=== PATIENT | female | born 1945 | race Caucasian/White ===

== ENCOUNTER 2016-09-21 10:47 | Emergency (ER) | payer MEDICARE, OTHER ==
[~2016-09-21] VITALS: Ht 154.9 cm; Wt 90.9 kg
[~2016-09-21 10:47] MED LIST: ACET-66 PO; AMAN100C12 PO; CALC-895 PO; CARB-102 PO; CITA20TA9 PO; GABA-533 PO; HYDR28.484 TP; OMEP20CA4 PO; PARO20TA24 PO; PRAM1TAB3 PO; TIMO.5OS OU; VITAD1000 PO; XALA2.5OS OU; [UNRECOGNIZED DRUG - CODE] TP
[2016-09-21] MEDS ORDERED: ALBUTEROL SULFATE 2.5 MG/0.5 ML NEB SOLUTION NEB ONE (13:00)
[2016-09-21] MEDS ORDERED: HYDR-4268 TP (13:00)
[2016-09-21] MEDS ORDERED: GABA-531 PO (13:00)
[2016-09-21] MEDS ORDERED: IPRATROPIUM BROMIDE 0.5 MG/2.5 ML NEB SOLUTION NEB ONE (13:00)
[2016-09-21] MEDS ORDERED: CefTRIAXone SODIUM 1 GM/VIAL IM ONE (14:00)
[2016-09-21] MEDS ORDERED: LIDOCAINE HCL/PF 1% 2 ML VIAL IM ONE (14:00)
[2016-09-21] MEDS ORDERED: BACITRACIN 0.9 GM PACKET OINTMENT TP ONE (14:00)
[2016-09-21] MEDS ORDERED: POVIDONE-IODINE 10% 15 ML SOLUTION UD TP ONE (14:00)
[2016-09-21 14:17] VITALS: BP 126/72
== END 2016-09-21 14:31 | disposition home or self-care (01) ==
LOC: EMS 10:49
DX: L02.811 Cutaneous abscess of head [any part, except face] (principal); L03.811 Cellulitis of head [any part, except face]; L08.9 Local infection of the skin and subcutaneous tissue, unspecified; I10 Essential (primary) hypertension; K21.9 Gastro-esophageal reflux disease without esophagitis; Z90.11 Acquired absence of right breast and nipple
CPT/HCPCS: 96372; 99283; J0696; J3490

== ENCOUNTER 2017-09-03 16:51 | Emergency (ER) | payer MEDICARE, OTHER ==
[~2017-09-03] VITALS: Ht 160 cm; Wt 89.0 kg
[~2017-09-03 16:51] MED LIST changes: +CITA-106 PO; -CITA20TA9 PO; +GABA-531 PO; -GABA-533 PO; +HYDR-4268 TP; -HYDR28.484 TP; -TIMO.5OS OU; -XALA2.5OS OU; -[UNRECOGNIZED DRUG - CODE] TP
[2017-09-03] MEDS ORDERED: HYDR25TA PO (17:18)
[2017-09-03] MEDS ORDERED: NAPR250T4 PO (17:18)
[2017-09-03] MEDS ORDERED: COLC0.6T67 PO (17:18)
[2017-09-03] MEDS ORDERED: TIMO.5OS OU (17:18)
[2017-09-03] MEDS ORDERED: CALC-687 PO (17:18)
[2017-09-03] MEDS ORDERED: CARB1TAB38 PO (17:18)
[2017-09-03] MEDS ORDERED: ASPI81 PO (17:18)
[2017-09-03] MEDS ORDERED: AMANL PO (17:18)
[2017-09-03] MEDS ORDERED: DOCU250C91 PO (17:18)
[2017-09-03 18:03] LABS: BASOPHILS % (AUTO) 0.3 % (0.0-2.0); EOSINOPHILS % (AUTO) 5.3 % (1.0-6.0); HEMATOCRIT 38.4 % (36-46); LYMPHOCYTES # (AUTO) 1.2 K/uL (1.0-4.8); LYMPHOCYTES % (AUTO) 25.9 % (22.0-44.0); MEAN CORPUSCULAR HGB CONC 33.9 G/dL (31.0-37.0); MEAN CORPUSCULAR VOLUME 94 fL (80-100); MONOCYTES # (AUTO) 0.6 K/uL (0.1-1.0); MONOCYTES % (AUTO) 11.9 % (2.0-9.0); NEUTROPHILS # (AUTO) 2.7 K/uL (1.8-7.7); NEUTROPHILS % (AUTO) 56.6 % (40.0-70.0); PLATELET COUNT (AUTO) 227 K/uL (150-450); RED BLOOD CELL COUNT(AUTO) 4.08 MIL/uL (4.00-5.20); RED CELL DISTRIBUTION WIDTH 14.1 % (11.5-14.5)
[2017-09-03 18:04] LABS: ANION GAP 6 mmol/L (8-16); CALCIUM, TOTAL 8.7 mg/dL (8.8-10.5); CARBON DIOXIDE 27 mmol/L (22-29); CHLORIDE 102 mmol/L (98-107); CREATININE 0.68 mg/dL (0.60-1.30); GLOMERULAR FILTR. RATE CALC > 60 mL/min (>60); GLUCOSE,RANDOM 111 mg/dL (70-110); POTASSIUM 4.2 mmol/L (3.5-5.1); SODIUM SERUM 135 mmol/L (136-145); UREA NITROGEN, BLOOD 13 mg/dL (7-18)
[2017-09-03 18:09] LABS: ALANINE AMINOTRANSFERASE 20 U/L (12-78); ALBUMIN 3.3 g/dL (3.4-5.0); ALKALINE PHOSPHATASE 157 U/L (46-116); ASPARTATE AMINOTRANSFERASE 24 U/L (15-37); BILIRUBIN,TOTAL 0.4 mg/dL (0.1-1.0); TOTAL PROTEIN, SERUM 7.1 g/dL (6.4-8.2)
[2017-09-03 18:11] LABS: D-DIMER 4.27 mg/L FEU (0.00-0.50); PROTHROMBIN TIME 10.5 SEC (9.4-11.6)
[2017-09-03 19:03] LABS: B-TYPE NATRIURETIC PEPTIDE 116 pg/mL (0-100)
[2017-09-03 20:33] VITALS: BP 118/53
== END 2017-09-03 21:55 | disposition home or self-care (01) ==
LOC: EMS 16:53
DX: I82.4Z3 Acute embolism and thrombosis of unspecified deep veins of distal lower extremity, bilateral (principal); I10 Essential (primary) hypertension
CPT/HCPCS: 85379; 93970; 99285

== ENCOUNTER 2019-01-26 17:03 | Emergency (ER) | payer MEDICARE, OTHER ==
[~2019-01-26] VITALS: Ht 162.6 cm; Wt 79.5 kg
[~2019-01-26 17:03] MED LIST changes: -ACET-66 PO; +AMAN-6 PO; -AMAN100C12 PO; -CALC-895 PO; -CARB-102 PO; +CARB1TAB38 PO; +CHOL100018 PO; +COLC0.6T73 PO; +DSS100 PO; -HYDR-4268 TP; -PARO20TA24 PO; +RIVA15T PO; -VITAD1000 PO
[2019-01-26] MEDS ORDERED: BACL10TA PO (18:20)
[2019-01-26] MEDS ORDERED: HYDR-4061 PO (18:20)
[2019-01-26] MEDS ORDERED: OMEP20 PO (18:20)
[2019-01-26] MEDS ORDERED: CARB1TAB38 PO (18:20)
[2019-01-26] MEDS ORDERED: AMAN50SY5 PO (18:20)
[2019-01-26] MEDS ORDERED: CITA-106 PO (18:20)
[2019-01-26 19:20] LABS: APPEARANCE,URINE CLOUDY (CLEAR); BILIRUBIN,URINE NEGATIVE (NEGATIVE); GLUCOSE, URINE (UA) NEGATIVE (NEGATIVE); KETONES,URINE NEGATIVE (NEGATIVE); LEUKOCYTE ESTERASE ,URINE SMALL (NEGATIVE); NITRATE,URINE POSITIVE (NEGATIVE); OCCULT BLOOD,URINE NEGATIVE (NEGATIVE); PH,URINE 5.5 (5.0-8.0); PROTEIN,URINE NEGATIVE (NEGATIVE); UROBILINOGEN,URINE 0.2 mg/dL (<=1.0)
[2019-01-26 20:12] LABS: BACTERIA,URINE Many /HPF (None Seen); RBC,URINE None Seen /HPF (0-2); SQUAMOUS EPITHELIAL CELL,UR Few /LPF (None Seen)
[2019-01-26 20:13] LABS: YEAST,URINE Rare /HPF (None Seen)
[2019-01-26 21:21] VITALS: BP 103/60
== END 2019-01-26 23:01 | disposition home or self-care (01) ==
LOC: EMS 17:06
DX: N39.0 Urinary tract infection, site not specified (principal); R41.0 Disorientation, unspecified; G20 Parkinson's disease; I10 Essential (primary) hypertension; M19.90 Unspecified osteoarthritis, unspecified site; Z85.89 Personal history of malignant neoplasm of other organs and systems; Z85.3 Personal history of malignant neoplasm of breast; Z79.899 Other long term (current) drug therapy; Z98.890 Other specified postprocedural states
CPT/HCPCS: 87086

== ENCOUNTER 2021-11-14 19:30 | Emergency (ER) | payer MEDICARE, OTHER ==
[~2021-11-14] VITALS: Ht 157.5 cm; Wt 81.8 kg
[~2021-11-14 19:30] MED LIST changes: +AMAN-24 PO; -AMAN-6 PO; +BACL10TA PO; -CHOL100018 PO; -CITA-106 PO; +CITA-144 PO; -COLC0.6T73 PO; -DSS100 PO; +GABA-1181 PO; -GABA-531 PO; +HYDR-4061 PO; -PRAM1TAB3 PO; -RIVA15T PO; +RIVA15TA PO
[2021-11-14] MEDS ORDERED: AMAN-24 PO (19:40)
[2021-11-14] MEDS ORDERED: PRAM0.129 PO (19:40)
[2021-11-14] MEDS ORDERED: COLC0.6C PO (19:40)
[2021-11-14 20:46] LABS: BASOPHILS % (AUTO) 0.3 % (0.0-2.0); EOSINOPHILS % (AUTO) 3.4 % (1.0-6.0); HEMATOCRIT 43.2 % (36-46); HEMOGLOBIN 14.1 g/dL (12.0-16.0); LYMPHOCYTES # (AUTO) 1.6 K/uL (1.0-4.8); LYMPHOCYTES % (AUTO) 37.1 % (22.0-44.0); MEAN CORPUSCULAR HEMOGLOBIN 32.3 pg (26.0-34.0); MEAN CORPUSCULAR HGB CONC 32.7 G/dL (31.0-37.0); MEAN CORPUSCULAR VOLUME 99 fL (80-100); MONOCYTES # (AUTO) 0.4 K/uL (0.1-1.0); MONOCYTES % (AUTO) 9.6 % (2.0-9.0); NEUTROPHILS # (AUTO) 2.2 K/uL (1.8-7.7); NEUTROPHILS % (AUTO) 49.6 % (40.0-70.0); PLATELET COUNT (AUTO) 166 K/uL (150-450); RED BLOOD CELL COUNT(AUTO) 4.36 MIL/uL (4.00-5.20)
[2021-11-14 20:59] LABS: INR 1.1 (0.9-1.1)
[2021-11-14 21:00] LABS: ANION GAP 5 mmol/L (8-16); CALCIUM, TOTAL 8.8 mg/dL (8.8-10.5); CARBON DIOXIDE 30 mmol/L (22-29); CHLORIDE 104 mmol/L (98-107); CREATININE 0.54 mg/dL (0.60-1.30); GLUCOSE,RANDOM 105 mg/dL (70-110); POTASSIUM 3.8 mmol/L (3.5-5.1); SODIUM SERUM 139 mmol/L (136-145); UREA NITROGEN, BLOOD 19 mg/dL (7-18)
[2021-11-14 21:01] LABS: GLOMERULAR FILTR. RATE CALC > 60 mL/min (>60)
[2021-11-14 21:05] LABS: ALANINE AMINOTRANSFERASE 18 U/L (12-78); ALBUMIN 3.4 g/dL (3.4-5.0); ALKALINE PHOSPHATASE 107 U/L (46-116); ASPARTATE AMINOTRANSFERASE 22 U/L (15-37); BILIRUBIN,TOTAL 0.4 mg/dL (0.1-1.0); TOTAL PROTEIN, SERUM 7.3 g/dL (6.4-8.2)
[2021-11-14 21:57] VITALS: BP 135/68
== END 2021-11-15 00:18 | disposition home or self-care (01) ==
LOC: EMS 19:30
DX: M79.672 Pain in left foot (principal); M19.90 Unspecified osteoarthritis, unspecified site; I10 Essential (primary) hypertension; G20 Parkinson's disease; Z85.3 Personal history of malignant neoplasm of breast; Z87.39 Personal history of other diseases of the musculoskeletal system and connective tissue; Z90.11 Acquired absence of right breast and nipple; Z90.12 Acquired absence of left breast and nipple; Z98.890 Other specified postprocedural states
CPT/HCPCS: 80053; 85025; 85610; 85730; 93970; 94640; 99285